=== PATIENT | female | born 1970 | race Caucasian/White ===

== ENCOUNTER → 2017-01-25 | Outpatient (CLI) | payer BC ==
[~2017-01-25] MED LIST: BENTYL20 MG PO; KLONOPIN0.5 MG PO; LODINE500 M1 PO; LORTAB 10-5001 EACH PO; LYRICA75 MG PO; NEURONTIN300 MG PO; OXYCODONE HCL10 MG PO; PHENERGAN SUPP25 M1 PR; PHENERGAN25 M1 PR; PHENERGAN25 MG PO; PRENATAL W/FOLI1 TA1 PO; ZANAFLEX4 M1 PO
--- NOTE | ~2017-01-25 | BD1 ---
[facility] A Service [facility] RADIOLOGY TEXT RESULTS PATIENT: VICKI PINEDA LOCATION: [facility] : 70 UNIT #: [id number] AGE: [address]: Jaspreet Serna MD SEX: F ORDER DR: [id number] [facility]. [place], [place] [address] [id number] O MR#: [id number] Acc #: [id number] NAME: VICKI PINEDA : 1970 SEX: F STUDY DATE/TIME: 01/25/2017 13:39 UNIT: [facility] ROOM: STUDY DESCRIPTION: BD Dexa Bone Dens 1+ Site Attending Physician: Jaspreet Serna M.D. Ordering Physician: Jaspreet Serna M.D. Primary Care Physician: Jaspreet Serna M.D. MEDICAL IMAGING REPORT This report is preliminary unless electronic signature is present EXAM Bone density spine, hip, 01/25/2017. HISTORY Vitamin D deficiency. Patient gives additional history of 25-year history of smoking. Patient is perimenopausal. Patient is a 210 pound, 46-year-old, female. TECHNIQUE Bone density scanning performed upper 4 lumbar vertebral segments and proximal left femur. FINDINGS L1-L4: Total bone mineral density 1.248 g/cm2, for a T-score of 1.8 standard deviations above the mean for a reference population of normal young individuals and Z-Score of 2.3 standard deviations above the mean for age-matched population. Proximal left femur total bone mineral density is 1.070 g/cm2, for a T-score of 1.0 standard deviation above the mean for a reference population of normal young individuals and Z-Score of 1.4 standard deviations above the mean for age-matched population. IMPRESSION Normal bone mineral density upper 4 lumbar vertebrals and proximal left femur. Please correlate with the patient's clinical status. Continued surveillance recommended. Dictated by... Cruz Monroe M.D. [facility] A Service of [facility] RADIOLOGY TEXT RESULTS PATIENT: VICKI PINEDA [id number] : [birth year] UNIT #: [id number] AGE: [address]: Jaspreet Serna MD SEX: F ORDER DR: THIS IS AN ELECTRONICALLY VERIFIED REPORT Cruz Monroe M.D. at 01/26/2017 8:44 PM PARVIN/loly TD: 01/25/2017 18:51 JOB #: [id number] MEDICAL IMAGING REPORT Page 1 of 1 COPY
== END | disposition home or self-care (01) ==
LOC: CWCC 13:20
DX: N95.1 Menopausal and female climacteric states (principal); Z86.39 Personal history of other endocrine, nutritional and metabolic disease
CPT/HCPCS: 77080